=== PATIENT | female | born 1970 | race Caucasian/White ===

== ENCOUNTER 2022-08-07 18:24 | Observation (INO) | payer BC ==
[2022-08-07] VITALS (9 sets, daily range): BP systolic 92–143; BP diastolic 63–85
[~2022-08-07] VITALS: Ht 165.1 cm; Wt 97.5 kg
[2022-08-07 20:09] LABS: BASO% 0.5 % (0-3); EOS% 0.8 % (0-8); HEMATOCRIT 51.5 % (37.0-47.0); HEMOGLOBIN 17.5 g/dl (12.0-16.0); IMMATURE GRANULOCYTES 0.1 % (0.0-5.0); LYMPH% 25.7 % (15-41); MEAN CELL VOLUME 87.9 fL CALC (80.0-100.0); MEAN CORPUSCULAR HGB 29.9 pG CALC (26.0-32.0); MONO% 12.5 % (2-13); NEUT# 5.11 thou/uL (2.00-7.15); NEUT% 60.4 % (42-76); RED BLOOD COUNT 5.86 mill/uL (4.20-5.60); RED CELL DISTRI WIDTH 12.7 % (11.5-15.5)
[2022-08-07 20:26] LABS: ALBUMIN 4.6 g/dL (3.2-5.0); ALKALINE PHOSPHATASE 74 u/l (38-126); ANION GAP 13 (6-22 (CALC)); BILIRUBIN, TOTAL 1.1 mg/dL (0.02-1.3); BUN 12 mg/dL (7-17); BUN/CREATININE RATIO 16 (12-20 (CALC)); CARBON DIOXIDE 27 mmol/l (22-30); CHLORIDE 101 mmol/l (95-108); CREATININE 0.7 mg/dL (0.5-1.0); D-DIMER 1.01 mg/L (0.19-0.60); GFR FOR AFR.AMER. > 60 ML/MIN (>=60 (CALC)); GFR OTHER RACES > 60 ML/MIN (>=60 (CALC)); SGOT/AST 42 u/l (14-36); SODIUM 136 mmol/l (137-146); TOTAL PROTEIN 8.8 g/dL (6.3-8.2)
[2022-08-07 20:31] LABS: ACT PARTIAL THROMBO TIME 26.7 SECONDS (20.0-32.5); PROTHROMBIN TIME 9.8 SECONDS (9.0-12.5)
[2022-08-08 04:09] VITALS: BP 139/92
[2022-08-08 07:18] VITALS: BP 130/81
[2022-08-08 16:20] VITALS: BP 121/73
[2022-08-08 16:23] VITALS: BP 121/73
[2022-08-08 20:16] VITALS: BP 128/84
[2022-08-09 04:17] VITALS: BP 154/76
[2022-08-09 05:12] LABS: HEMATOCRIT 48.2 % (37.0-47.0); HEMOGLOBIN 16.2 g/dl (12.0-16.0); IMMATURE GRANULOCYTES 0.4 % (0.0-5.0); LYMPH% 5.8 % (15-41); MEAN CELL VOLUME 88.9 fL CALC (80.0-100.0); MEAN CORPUSCULAR HGB 29.9 pG CALC (26.0-32.0); MEAN CORPUSCULAR HGB CONC 33.6 g/dL CAL (32.0-36.0); MONO% 2.5 % (2-13); NEUT# 19.83 thou/uL (2.00-7.15); NEUT% 91.3 % (42-76); RED BLOOD COUNT 5.42 mill/uL (4.20-5.60); RED CELL DISTRI WIDTH 12.8 % (11.5-15.5)
[2022-08-09 05:29] LABS: ALBUMIN 3.9 g/dL (3.2-5.0); ALKALINE PHOSPHATASE 108 u/l (38-126); ANION GAP 15 (6-22 (CALC)); BUN 11 mg/dL (7-17); BUN/CREATININE RATIO 18 (12-20 (CALC)); CARBON DIOXIDE 25 mmol/l (22-30); CHLORIDE 104 mmol/l (95-108); CREATININE 0.6 mg/dL (0.5-1.0); GFR FOR AFR.AMER. > 60 ML/MIN (>=60 (CALC)); GFR OTHER RACES > 60 ML/MIN (>=60 (CALC)); MAGNESIUM 2.3 mg/dL (1.6-2.3); POTASSIUM 4.6 mmol/l (3.5-5.1); SGOT/AST 23 u/l (14-36); SODIUM 138 mmol/l (137-146)
[2022-08-09 05:31] LABS: BILIRUBIN, TOTAL 0.2 mg/dL (0.02-1.3); TOTAL PROTEIN 6.7 g/dL (6.3-8.2)
[2022-08-09 07:52] VITALS: BP 142/70
[2022-08-09] MEDS ORDERED: ADVAIR DISK1 IN (11:07)
[2022-08-09] MEDS ORDERED: IPRATROPIU0.5 MG/3 M NEB (11:07)
[2022-08-09] MEDS ORDERED: PREDNISONE10 MG PO (11:11)
== END 2022-08-09 12:58 | disposition home or self-care (01) | DRG 202 ==
LOC: ED 18:24 → MS2 22:37
PROVIDERS: Family Medicine; Nurse Practitioner Family; ADMIT Internal Medicine; ATTEND Internal Medicine
DX: J45.901 Unspecified asthma with (acute) exacerbation (principal); J96.01 Acute respiratory failure with hypoxia; J44.1 Chronic obstructive pulmonary disease with (acute) exacerbation; F17.210 Nicotine dependence, cigarettes, uncomplicated; T41.5X6A Underdosing of therapeutic gases, initial encounter; Z91.120 Patient's intentional underdosing of medication regimen due to financial hardship; Z20.822 Contact with and (suspected) exposure to COVID-19
CPT/HCPCS: G0378; J3475; Q9967